=== PATIENT | female | born 1945 | race Caucasian/White ===

== ENCOUNTER 2019-07-16 06:00 | Outpatient (RCR) | payer MEDICARE, OTHER, SELFPAY | END 2019-08-15 23:59 | disposition home or self-care (01) | LOC: SPT 06:00 | PROVIDERS: Family Provider Family Medicine; PCP Family Medicine; Visit Provider Family Medicine | DX: M25.551 Pain in right hip (principal) ==

== ENCOUNTER 2019-07-22 11:56 | Outpatient (RCR) | payer MEDICARE, OTHER, SELFPAY | END 2019-08-15 23:59 | disposition home or self-care (01) | LOC: SR3 11:56 | PROVIDERS: Family Provider Family Medicine; PCP Family Medicine; Visit Provider Family Medicine | DX: M25.551 Pain in right hip (principal) | CPT/HCPCS: 97110; 97162 ==

== ENCOUNTER 2019-08-08 08:56 | Outpatient (CLI) | payer MEDICARE, OTHER, SELFPAY ==
--- NOTE | 2019-08-08 09:16 | CT_ITS ---
WS: [id number] CT CHEST, ABDOMEN, AND PELVIS TECHNIQUE: Contrast-enhanced CT of the chest, abdomen, and pelvis with coronal and sagittal reformatt ed images. CLINICAL INFORMATION: MALIGNANT NEOPLASM OF THE ENDOMETRIUM COMPARISON: None. DLP: [id number] scans at [facility] use at least one of these dose optimization techniques: automat ed exposure control; mA and/or kV adjustment per patient size (includes targeted exams where dose is matched to clinical indication); or iterative reconstruction. CT CHEST: Proximal main pulmonary arteries are normal. Normal caliber thoracic aorta. Normal thoracic aorta. Nu merous normal sized mediastinal and paratracheal lymph nodes. Prominent right hilar lymph node measur ing 11 mm. These are nonspecific but may be reactive. No axillary lymphadenopathy. Lungs are well aer ated. No acute pulmonary infiltrates. No suspicious pulmonary parenchymal opacities. CT ABDOMEN AND PELVIS: Liver is normal in appearance. Normal portal vein and splenic vein. Prominent gallstone measuring 1.9 CM. No gallbladder wall thickening. Normal gastroesophageal junction. Normal spleen. Adrenal glands are normal. Normal renal parenchymal enhancement. No hydronephrosis. Mild fatty atrophy of the pancre as. Aortic calcification. No periaortic lymphadenopathy. Sigmoid diverticulosis. No evidence of acute diverticulitis. No inguinal lymphadenopathy. No inguinal or pelvic sidewall lymphadenopathy. 1.5 cm low-attenuation lesion right upper outer right breast appears cystic. This could followed up w ith right diagnostic mammogram and ultrasound. CT/CT chest abd pel w con* IMPRESSION: 1. No evidence of metastatic disease in the chest abdomen or pelvis. 2. Prior postoperative changes hysterectomy. No pelvic sidewall lymphadenopath y. 3. A few prominent anterior mediastinal and paratracheal lymph nodes. 11 mm ri ght hilar lymph node. Findings are nonspecific but may be reactive. 4. No suspicious pulmonary parenchymal opacities. 5. Prominent 1.9 cm gallstone in the gallbladder. No gallbladder wall thickeni ng. 6. No abdominal or pelvic lymphadenopathy. 7. Diverticulosis. No evidence of acute diverticulitis 8. 1.5 cm low-attenuation lesion upper outer right breast with attenuation larry ues consistent with cyst. This can be followed up with right diagnostic mammogr aphy and ultrasound.
[2019-08-08 10:51] LABS: Blood Urea Nitrogen 21 mg/dL (8-23)
[2019-08-08] MEDS: iohexol 300 mg/mL 100 mL Btl IV (10:58)
[2019-08-08] MEDS: iohexol 300 mg/mL 50 mL Btl PO (11:21)
== END 2019-08-08 08:57 | disposition home or self-care (01) ==
PROVIDERS: Radiology Neuroradiology; Family Provider Family Medicine; PCP Family Medicine; Visit Provider Nurse Practitioner Family
DX: C54.1 Malignant neoplasm of endometrium (principal); E66.9 Obesity, unspecified; Z68.34 Body mass index [BMI] 34.0-34.9, adult; Z90.710 Acquired absence of both cervix and uterus; K80.80 Other cholelithiasis without obstruction; K57.30 Diverticulosis of large intestine without perforation or abscess without bleeding; N60.01 Solitary cyst of right breast
CPT/HCPCS: 71260; 74177; 82565; 84520; Q9967

== ENCOUNTER 2019-08-16 06:00 | Outpatient (RCR) | payer MEDICARE, OTHER, SELFPAY | END 2019-09-13 23:59 | disposition home or self-care (01) | LOC: SR3 06:00 | PROVIDERS: Family Provider Family Medicine; PCP Family Medicine; Visit Provider Family Medicine | DX: M25.551 Pain in right hip (principal) | CPT/HCPCS: 97110 ==

== ENCOUNTER 2019-08-21 14:27 | Outpatient (CLI) | payer MEDICARE, OTHER, SELFPAY ==
--- NOTE | 2019-08-21 15:00 | MM_ITS ---
WS: [id number] DIAGNOSTIC RIGHT DIGITAL MAMMOGRAM WITH CAD RIGHT breast ultrasound, limited HISTORY: CT showing 1.5 cm lesion on her upper outer right breast COMPARISON: 10/28/2018, 10/12/2017, 10/06/2016 and 09/23/2014. CT 08/08/2019. TECHNIQUE: RIGHT craniocaudad, mediolateral oblique, and mediolateral views are submitted. Spot compr ession RIGHT CC and MLO. Computer aided detection utilized. Breast composition: There are scattered areas of fibroglandular density. Ill-defined soft tissue mass is noted in the upper outer quadrant of the RIGHT breast anteriorly. This corresponds to the mass se en on the recent mammogram. Comparing prior mammograms this mass has been present on prior studies. M ass does appear slightly better seen today than on prior studies. Mass measures approximately 18 mm i n diameter. RIGHT breast ultrasound, limited. There is a dense cluster of fibroglandular/fibrocystic change in the RIGHT breast at 12:00. This fatemeh esponds in shape to the mammographic abnormality. Mammographically the lesion is lateral to the nippl e. May be difference in the way the breast is positioned. MM/[place] [id number] IMPRESSION: BI-RADS: 2-Benign FOLLOW UP: 1 Year Follow-up The breast mass seen on CT corresponds to an 18 mm patch of fibroglandular tiss ue which has been present since 2009 by mammography. If this is not palpable no additional further workup is necessary. If this changes or becomes palpable bi opsy should high be obtained. By ultrasound and mammography this is benign and stable in appearance.
--- NOTE | 2019-08-21 15:05 | US_ITS ---
WS: [id number] DIAGNOSTIC RIGHT DIGITAL MAMMOGRAM WITH CAD RIGHT breast ultrasound, limited HISTORY: CT showing 1.5 cm lesion on her upper outer right breast COMPARISON: 10/28/2018, 10/12/2017, 10/06/2016 and 09/23/2014. CT 08/08/2019. TECHNIQUE: RIGHT craniocaudad, mediolateral oblique, and mediolateral views are submitted. Spot compr ession RIGHT CC and MLO. Computer aided detection utilized. Breast composition: There are scattered areas of fibroglandular density. Ill-defined soft tissue mass is noted in the upper outer quadrant of the RIGHT breast anteriorly. This corresponds to the mass se en on the recent mammogram. Comparing prior mammograms this mass has been present on prior studies. M ass does appear slightly better seen today than on prior studies. Mass measures approximately 18 mm i n diameter. RIGHT breast ultrasound, limited. There is a dense cluster of fibroglandular/fibrocystic change in the RIGHT breast at 12:00. This fatemeh esponds in shape to the mammographic abnormality. Mammographically the lesion is lateral to the nippl e. May be difference in the way the breast is positioned. US/US breast RT limited* [id number] IMPRESSION: BI-RADS: 2-Benign FOLLOW UP: 1 Year Follow-up The breast mass seen on CT corresponds to an 18 mm patch of fibroglandular tiss ue which has been present since 2009 by mammography. If this is not palpable no additional further workup is necessary. If this changes or becomes palpable bi opsy should high be obtained. By ultrasound and mammography this is benign and stable in appearance.
== END 2019-08-21 14:28 | disposition home or self-care (01) ==
LOC: RADSHAW 14:32
PROVIDERS: Family Provider Family Medicine; PCP Family Medicine; Visit Provider Obstetrics & Gynecology
DX: N64.89 Other specified disorders of breast (principal)
CPT/HCPCS: 76642; 77065

== ENCOUNTER 2020-08-10 12:16 | Outpatient (CLI) | payer MEDICARE, SELFPAY ==
--- NOTE | 2020-08-10 12:25 | CT_ITS ---
WS: [id number] CT CHEST WITH INTRAVENOUS CONTRAST HISTORY: PULMONARY NODULE, HISTORY OF ENDOMETRIAL CANCER TECHNIQUE: Contiguous 5 mm axial imaging performed on the thorax. Coronal and sagittal reformats are submitted. All CT scans at [facility] use at least one of these dose optimization techniq ues: automated exposure control; mA and/or kV adjustment per patient size (includes targeted exams wh ere dose is matched to clinical indication); or iterative reconstruction. CONTRAST: Omnipaque 300; 95 mL IV. DLP: 1011.33 mGycm COMPARISON: 08/08/2019 Lungs and central airway: Mild nodular opacification within the lingula in a tree-in-bud distribution . No additional nodules are identified. Pleura: Normal. No pleural effusion. Heart and pericardium: Mildly enlarged cardiac chambers. Mediastinum and stuart: Indeterminate mediastinal and hilar lymph nodes. These lymph nodes have slightl y increased in size and number since 08/08/2019. The largest lymph node is again noted at the RIGHT hi lum measuring 12 mm. Vessels: Mild atherosclerosis aorta. Normal size pulmonary artery. Chest wall and lower neck: RIGHT breast nodule measures 13 mm, similar to the prior study. Upper abdomen: Cholelithiasis without acute cholecystitis. Gallbladder is incompletely visualized. At herosclerosis continues into the upper abdominal aorta. No abnormality. Osseous structures: Increase in thoracic kyphosis. CT/CT chest w con* [id number] IMPRESSION: 1. New mild tree-in-bud airspace disease is probably postinflammatory or infec tious at the lingula. 2. No pulmonary mass or nodule. 3. Very slight increase in size and number of the indeterminate mediastinal an d hilar lymph nodes. May be reactive. 4. Cholelithiasis. 5. Stable RIGHT breast nodule.
[2020-08-10 12:46] LABS: Blood Urea Nitrogen 10 mg/dL (8-23)
[2020-08-10] MEDS: iohexol 300 mg/mL 100 mL Btl IV (12:58)
== END 2020-08-10 12:17 | disposition home or self-care (01) ==
LOC: RADWPI 12:20
PROVIDERS: PCP Family Medicine; Visit Provider Nurse Practitioner Family
DX: Z85.42 Personal history of malignant neoplasm of other parts of uterus (principal); R91.1 Solitary pulmonary nodule; N63.10 Unspecified lump in the right breast, unspecified quadrant; K80.20 Calculus of gallbladder without cholecystitis without obstruction
CPT/HCPCS: 71260; 82565; 84520; Q9967

== ENCOUNTER 2020-10-15 11:18 | Outpatient (CLI) | payer MEDICARE, SELFPAY ==
--- NOTE | 2020-10-15 11:21 | MM_ITS ---
WS: [id number] BILATERAL DIGITAL SCREENING MAMMOGRAPHY WITH CAD CLINICAL INFORMATION: SCREENING HISTORY: Screening mammogram. No current complaints. COMPARISON: TECHNIQUE: Bilateral CC and MLO views. FINDINGS: Scattered fibroglandular densities bilaterally. Stable asymmetric breast tissue upper outer right gen ast anteriorly. No suspicious focal mass, asymmetry, calcifications, or architectural distortion. No evidence of malignancy. Lucent centered calcifications. MM/[place] [id number] IMPRESSION: BI-RADS: 2-Benign FOLLOW UP: 1 Year Follow-up Recommend return to annual screening mammography.
== END 2020-10-15 11:19 | disposition home or self-care (01) ==
LOC: RADSHAW 11:20
PROVIDERS: PCP Family Medicine; Visit Provider Family Medicine
DX: Z12.31 Encounter for screening mammogram for malignant neoplasm of breast (principal)
CPT/HCPCS: 77067

== ENCOUNTER 2021-12-01 15:09 | Outpatient (CLI) | payer MEDICARE, SELFPAY ==
--- NOTE | 2021-12-01 15:17 | MM_ITS ---
WS: [id number] BILATERAL 3D TOMOSYNTHESIS DIGITAL SCREENING MAMMOGRAPHY WITH CAD CLINICAL INFORMATION: SCREENING HISTORY: Screening mammogram. No current complaints. COMPARISON: October 15, 2020 TECHNIQUE: Bilateral CC and MLO views. FINDINGS: Scattered fibroglandular densities bilaterally. Stable asymmetric breast tissue upper outer RIGHT gen ast anteriorly unchanged. No suspicious focal mass, asymmetry, calcifications, or architectural disto rtion. No evidence of malignancy. MM/[place] [id number] IMPRESSION: BI-RADS: 2-Benign FOLLOW UP: 1 Year Follow-up Recommend return to annual screening mammography.
== END 2021-12-01 15:10 | disposition home or self-care (01) ==
LOC: RAD 15:13
PROVIDERS: PCP Family Medicine; Visit Provider Family Medicine
DX: Z12.31 Encounter for screening mammogram for malignant neoplasm of breast (principal)
CPT/HCPCS: 77063; 77067

== ENCOUNTER → 2022-10-04 12:46 | Outpatient (BNVA) | payer MEDICARE, SELFPAY | PROVIDERS: PCP Family Medicine; Visit Provider Family Medicine | DX: Z00.00 Encounter for general adult medical examination without abnormal findings (principal); I10 Essential (primary) hypertension; R73.9 Hyperglycemia, unspecified | CPT/HCPCS: 80053; 80061; 83036; 85025 ==

== ENCOUNTER 2022-10-12 14:02 | Outpatient (CLI) | payer MEDICARE, SELFPAY ==
--- NOTE | 2022-10-12 14:52 | XR_ITS ---
WS: [id number] Exam: XR hip BI 3-4V wo/[place] [id number] Date/Time of Exam: 10/12/2022 3:06 PM Reason For Exam: hip pain There is moderately advanced degenerative change of both hips. No fracture or dislocation seen. There is subcortical cyst formation in the bilateral femoral heads and the bilateral acetabulum. Normal bi lateral soft tissues. XR/XR hip BI 3-4V wo/w [place] [id number] IMPRESSION: 1. Moderately advanced osteoarthritis of both hips. The right side slightly wor se than the left. 2. No fracture or dislocation.
== END 2022-10-12 14:03 | disposition home or self-care (01) ==
PROVIDERS: PCP Family Medicine; Visit Provider Family Medicine
DX: R93.89 Abnormal findings on diagnostic imaging of other specified body structures (principal); R73.9 Hyperglycemia, unspecified; I10 Essential (primary) hypertension; M16.0 Bilateral primary osteoarthritis of hip
CPT/HCPCS: 73522; 84550; 85025; 86140; 86160; 86162; 86235; 86255; 86376; 86431

== ENCOUNTER 2022-11-08 16:21 | Outpatient (CLI) | payer MEDICARE, SELFPAY ==
--- NOTE | 2022-11-08 16:30 | CT_ITS ---
WS: [id number] CT chest wo con [id number] HISTORY: f/u on tree in bud disease 2 years ago. smoker, cough TECHNIQUE: Axial imaging performed through the thorax. Coronal and sagittal reformats are submitted. All CT scans at [facility] use at least one of these dose optimization techniques: automated exposure control; mA and/or kV adjustment per patient size (includes targeted exams where dose is mat ched to clinical indication); or iterative reconstruction. CONTRAST: None DLP: 482.34 mGy.cm COMPARISON: 08/10/2020 Lungs and central airway: Very mild tree-in-bud airspace disease in the lingula is unchanged since . 2 mm micronodule LEFT lung base is unchanged. No new or enlarging nodules or masses. No new airspace disease. Pleura: Normal. No pleural effusion. Heart and pericardium: Normal size heart with no pericardial effusion. Mediastinum and stuart: Small, subcentimeter mediastinal and hilar lymph nodes with no progression. Pranay e of these lymph nodes are calcified from granulomatous disease. Vessels: Mild atherosclerosis aorta. No aneurysm. Normal size pulmonary artery. Chest wall and lower neck: No soft tissue masses. Upper abdomen: Cholelithiasis. No evidence for acute cholecystitis by CT. 18 mm stone within the gall bladder. No adrenal mass. Visualized upper organs are otherwise negative. Osseous structures: Mild thoracic spondylosis. CT/CT chest wo con [id number] IMPRESSION: 1. No interval change in the minimal tree-in-bud airspace disease at the lingu la. Likely chronic at this time. There is been no progression. 2. No pneumonia. 3. Stable numerous small mediastinal and hilar lymph nodes. 4. Cholelithiasis without acute cholecystitis.
== END 2022-11-08 16:22 | disposition home or self-care (01) ==
LOC: RAD 16:26
PROVIDERS: PCP Family Medicine; Visit Provider Family Medicine
DX: R93.89 Abnormal findings on diagnostic imaging of other specified body structures (principal); K80.20 Calculus of gallbladder without cholecystitis without obstruction; R05.9 Cough, unspecified; F17.200 Nicotine dependence, unspecified, uncomplicated
CPT/HCPCS: 71250

== ENCOUNTER 2022-12-14 10:35 | Outpatient (CLI) | payer MEDICARE, SELFPAY ==
--- NOTE | 2022-12-14 10:41 | MM_ITS ---
WS: [id number] SCREENING DIGITAL BREAST TOMOSYNTHESIS MAMMOGRAM WITH CAD HISTORY: SCREENING COMPARISON: 12/01/2021, 10/15/2020, 10/28/2018 Bilateral CC and MLO with tomosynthesis and synthetic mammography submitted. Computer aided detection analyzed. Breast composition: There are scattered areas of fibroglandular density. Focal asymmetry measuring 8 mm in the central LEFT breast seen on the MLO projection. Suspect superimposed fibroglandular tissue. Otherwise the asymmetries are stable within each breast. MM/[place] [id number] IMPRESSION: BI-RADS: 2-Benign FOLLOW UP: Need Additional Imaging LEFT breast: Spot compression views (MLO). True ML. Ultrasound to follow if abn ormality persists.
== END 2022-12-14 10:36 | disposition home or self-care (01) ==
PROVIDERS: PCP Family Medicine; Visit Provider Family Medicine
DX: Z12.31 Encounter for screening mammogram for malignant neoplasm of breast (principal)
CPT/HCPCS: 77063; 77067

== ENCOUNTER 2023-01-08 11:37 | Outpatient (CLI) | payer MEDICARE, SELFPAY ==
--- NOTE | 2023-01-08 11:46 | MM_ITS ---
WS: [id number] ADDITIONAL VIEWS LEFT MAMMOGRAM with tomosynthesis. HISTORY: ABNORMAL MAMMO COMPARISON: 12/14/2022 and 12/01/2021 LEFT MAMMOGRAM: Spot compression views and true ML with tomosynthesis and sympathetic mammography. The asymmetry described on 12/14/2022 in the central LEFT breast is no longer present. Asymmetry has re solved with additional imaging. No ultrasound necessary. MM/[place] [id number] IMPRESSION: BI-RADS: 2-Benign FOLLOW UP: 1 Year Follow-up
== END 2023-01-08 11:38 | disposition home or self-care (01) ==
LOC: RAD 11:39
PROVIDERS: PCP Family Medicine; Visit Provider Family Medicine
DX: R92.8 Other abnormal and inconclusive findings on diagnostic imaging of breast (principal)
CPT/HCPCS: 77061; G0279

== ENCOUNTER → 2023-02-06 10:46 | Outpatient (BNVA) | payer MEDICARE, SELFPAY | PROVIDERS: PCP Family Medicine; Visit Provider Internal Medicine Rheumatology | DX: Z79.899 Other long term (current) drug therapy (principal); M19.90 Unspecified osteoarthritis, unspecified site; Z11.1 Encounter for screening for respiratory tuberculosis; Z11.59 Encounter for screening for other viral diseases; M17.0 Bilateral primary osteoarthritis of knee; M19.042 Primary osteoarthritis, left hand; M19.041 Primary osteoarthritis, right hand; R76.8 Other specified abnormal immunological findings in serum | CPT/HCPCS: 36415; 71046; 73130; 73562; 73630; 80076; 82310; 82565; 83735; 84100; 84132; 85025; 85651; 86140; 86200; 86480; 86704; 86803; 87340; 99204 ==

== ENCOUNTER → 2023-04-09 14:49 | Outpatient (BNVA) | payer MEDICARE, SELFPAY | PROVIDERS: PCP Family Medicine; Visit Provider Internal Medicine Rheumatology | DX: Z79.899 Other long term (current) drug therapy (principal); M19.90 Unspecified osteoarthritis, unspecified site; R76.8 Other specified abnormal immunological findings in serum | CPT/HCPCS: 99214 ==

== ENCOUNTER 2023-05-08 07:58 | Outpatient (CLI) | payer MEDICARE, SELFPAY ==
[2023-05-08 08:23] LABS: Basophils # 0.1 10^3/uL (0.0-0.1); Basophils % 1.3 %; Eosinophils # 0.2 10^3/uL (0.0-0.8); Eosinophils % 2.8 %; Hematocrit 45.1 % (36-47); Lymphocytes # 1.1 10^3/uL (0.8-4.8); Lymphocytes % 17.5 %; Mean Corpuscular HGB Conc 32.2 g/dL (30-55); Mean Corpuscular Hemoglobin 28.2 pg (27-33); Mean Corpuscular Volume 87.7 fl (85-98); Mean Platelet Volume 9.8 fL (7.4-10.4); Monocytes # 0.7 10^3/uL (0.2-0.9); Monocytes % 10.6 %; Neutrophils # 4.32 10^3/uL (1.8-7.7); Neutrophils % 67.5 %; Nucleated Red Blood Cells % 0 %; Platelet Count 267 10^3/cmm (157-399); Red Blood Count 5.14 10^6/uL (3.85-5.65); Red Cell Distribution Width 14.8 % (12.1-15.1)
[2023-05-08 08:54] LABS: Alanine Aminotransferase 12 U/L (0-33); Albumin Level 3.6 g/dL (3.5-5.2); Alkaline Phosphatase 100 U/L (35-105); Globulin 3.5 g/dL (1.3-4.6); Thyroid Stimulating Hormone 3.13 uIU/mL (0.27-4.20); Total Bilirubin 0.5 mg/dL (0.15-1.2); Total Protein 7.1 g/dL (6.6-8.7)
[2023-05-08 09:43] LABS: Free T4 Free Thyroxine 1.14 ng/dL (0.82-1.77)
[2023-05-08 10:02] LABS: Aspartate Amino Transferase 18 U/L (0-32)
== END 2023-05-08 07:59 | disposition home or self-care (01) ==
LOC: LAB 07:59
PROVIDERS: PCP Family Medicine; Visit Provider Internal Medicine Rheumatology
DX: M19.90 Unspecified osteoarthritis, unspecified site (principal); Z79.899 Other long term (current) drug therapy
CPT/HCPCS: 36415; 80076; 82565; 84439; 84443; 85025; 86140

== ENCOUNTER → 2023-07-02 13:56 | Outpatient (BNVA) | payer MEDICARE, SELFPAY | PROVIDERS: PCP Family Medicine; Visit Provider Internal Medicine Rheumatology | DX: Z79.899 Other long term (current) drug therapy (principal); M19.90 Unspecified osteoarthritis, unspecified site; R76.8 Other specified abnormal immunological findings in serum | CPT/HCPCS: 36415; 80076; 82565; 82657; 85025; 86140; 99214 ==

== ENCOUNTER 2023-08-02 08:16 | Outpatient (CLI) | payer MEDICARE, SELFPAY ==
[2023-08-02 08:36] LABS: Basophils # 0.1 10^3/uL (0.0-0.1); Basophils % 1.2 %; Eosinophils # 0.2 10^3/uL (0.0-0.8); Eosinophils % 2.9 %; Hematocrit 42.3 % (36-47); Lymphocytes # 1.1 10^3/uL (0.8-4.8); Lymphocytes % 16.5 %; Mean Corpuscular HGB Conc 31.4 g/dL (30-55); Mean Corpuscular Hemoglobin 29.1 pg (27-33); Mean Corpuscular Volume 92.6 fl (85-98); Mean Platelet Volume 9.7 fL (7.4-10.4); Monocytes # 0.6 10^3/uL (0.2-0.9); Monocytes % 8.3 %; Neutrophils # 4.84 10^3/uL (1.8-7.7); Neutrophils % 70.8 %; Nucleated Red Blood Cells % 0 %; Platelet Count 249 10^3/cmm (157-399); Red Blood Count 4.57 10^6/uL (3.85-5.65); Red Cell Distribution Width 14.7 % (12.1-15.1); White Blood Count 6.84 10^3/uL (3.29-11.43)
[2023-08-02 09:04] LABS: Alanine Aminotransferase 15 U/L (0-33); Albumin Level 3.7 g/dL (3.5-5.2); Alkaline Phosphatase 85 U/L (35-105); Aspartate Amino Transferase 21 U/L (0-32); Globulin 3.3 g/dL (1.3-4.6); Total Bilirubin 0.4 mg/dL (0.15-1.2)
== END 2023-08-02 08:17 | disposition home or self-care (01) ==
PROVIDERS: PCP Family Medicine; Visit Provider Internal Medicine Rheumatology
DX: Z79.899 Other long term (current) drug therapy (principal); M19.90 Unspecified osteoarthritis, unspecified site
CPT/HCPCS: 80076; 82565; 85025; 86140

== ENCOUNTER 2023-11-29 15:44 | Outpatient (CLI) | payer MEDICARE, SELFPAY ==
[2023-11-29 16:07] LABS: Basophils # 0.1 10^3/uL (0.0-0.1); Basophils % 0.6 %; Eosinophils # 0.1 10^3/uL (0.0-0.8); Eosinophils % 0.9 %; Hematocrit 40.6 % (36-47); Lymphocytes # 1.1 10^3/uL (0.8-4.8); Lymphocytes % 11.3 %; Mean Corpuscular HGB Conc 32.3 g/dL (30-55); Mean Corpuscular Hemoglobin 28.9 pg (27-33); Mean Corpuscular Volume 89.6 fl (85-98); Mean Platelet Volume 9.5 fL (7.4-10.4); Monocytes # 0.6 10^3/uL (0.2-0.9); Monocytes % 6.3 %; Neutrophils # 7.57 10^3/uL (1.8-7.7); Neutrophils % 80.6 %; Nucleated Red Blood Cells % 0 %; Platelet Count 258 10^3/cmm (157-399); Red Blood Count 4.53 10^6/uL (3.85-5.65); Red Cell Distribution Width 14.6 % (12.1-15.1); White Blood Count 9.39 10^3/uL (3.29-11.43)
[2023-11-29 16:12] LABS: Erythrocyte Sedimentation Rate 18 mm/hr (0-15)
[2023-11-29 17:18] LABS: Alanine Aminotransferase 13 U/L (0-33); Alkaline Phosphatase 77 U/L (35-105); Globulin 3.2 g/dL (1.3-4.6); Total Bilirubin 0.5 mg/dL (0.15-1.2); Total Protein 7.2 g/dL (6.6-8.7)
[2023-11-29 17:50] LABS: Aspartate Amino Transferase 27 U/L (0-32)
== END 2023-11-29 15:45 | disposition home or self-care (01) ==
PROVIDERS: PCP Family Medicine; Visit Provider Internal Medicine Rheumatology
DX: Z79.899 Other long term (current) drug therapy (principal); M19.90 Unspecified osteoarthritis, unspecified site
CPT/HCPCS: 80076; 82565; 85025; 85651; 86140

== ENCOUNTER → 2024-01-10 09:36 | Outpatient (BNVA) | payer MEDICARE, SELFPAY | PROVIDERS: PCP Family Medicine; Visit Provider Internal Medicine Rheumatology | DX: M19.90 Unspecified osteoarthritis, unspecified site (principal); R76.8 Other specified abnormal immunological findings in serum; Z79.899 Other long term (current) drug therapy; Z11.59 Encounter for screening for other viral diseases; Z11.1 Encounter for screening for respiratory tuberculosis | CPT/HCPCS: 99214 ==

== ENCOUNTER 2024-01-14 10:45 | Outpatient (CLI) | payer MEDICARE, SELFPAY ==
--- NOTE | 2024-01-14 10:55 | MM_ITS ---
WS: [id number] BILATERAL SCREENING DIGITAL TOMOSYNTHESIS MAMMOGRAM WITH CAD HISTORY: SCREENING COMPARISON: 01/08/2023, 10/28/2018 and 08/21/2019 Bilateral CC and MLO views with tomosynthesis and synthetic mammography submitted. Computer aided det ection analyzed. Breast composition: There are scattered areas of fibroglandular density. No suspicious masses, microc alcifications or architectural distortion. There are scattered asymmetries in each breast which have been present on prior studies with no adverse change. Benign calcifications. MM/[place] [id number] IMPRESSION: BI-RADS: 2-Benign FOLLOW UP: 1 Year Follow-up
== END 2024-01-14 10:46 | disposition home or self-care (01) ==
LOC: RAD 10:45
PROVIDERS: PCP Family Medicine; Visit Provider Family Medicine
DX: Z12.31 Encounter for screening mammogram for malignant neoplasm of breast (principal); R92.323 Mammographic fibroglandular density, bilateral breasts; N64.89 Other specified disorders of breast; R92.1 Mammographic calcification found on diagnostic imaging of breast
CPT/HCPCS: 77063; 77067

== ENCOUNTER → 2024-05-08 09:50 | Outpatient (BNVA) | payer MEDICARE, SELFPAY | PROVIDERS: PCP Family Medicine; Visit Provider Internal Medicine Rheumatology | DX: Z79.899 Other long term (current) drug therapy (principal); M19.90 Unspecified osteoarthritis, unspecified site; R76.8 Other specified abnormal immunological findings in serum | CPT/HCPCS: 36415; 80076; 82306; 82565; 83036; 84439; 84443; 85025; 85651; 86140; 99214 ==

== ENCOUNTER 2024-06-06 14:04 | Outpatient (CLI) | payer MEDICARE, SELFPAY ==
[2024-06-06 14:55] LABS: Basophils # 0.1 10^3/uL (0.0-0.1); Basophils % 0.8 %; Eosinophils # 0.1 10^3/uL (0.0-0.8); Eosinophils % 1.3 %; Lymphocytes # 1.3 10^3/uL (0.8-4.8); Mean Corpuscular HGB Conc 31.2 g/dL (30-55); Mean Corpuscular Hemoglobin 28.5 pg (27-33); Mean Corpuscular Volume 91.3 fl (85-98); Monocytes # 0.6 10^3/uL (0.2-0.9); Monocytes % 7.5 %; Neutrophils # 5.77 10^3/uL (1.8-7.7); Neutrophils % 73.1 %; Nucleated Red Blood Cells % 0 %; Platelet Count 256 10^3/cmm (157-399); Red Blood Count 4.71 10^6/uL (3.85-5.65); Red Cell Distribution Width 15.1 % (12.1-15.1); White Blood Count 7.88 10^3/uL (3.29-11.43)
[2024-06-06 15:00] LABS: Erythrocyte Sedimentation Rate 16 mm/hr (0-15)
[2024-06-06 15:39] LABS: Alanine Aminotransferase 15 U/L (0-33); Albumin Level 4.1 g/dL (3.5-5.2); Alkaline Phosphatase 72 U/L (35-105); Aspartate Amino Transferase 18 U/L (0-32); Globulin 2.9 g/dL (1.3-4.6); Total Bilirubin 0.4 mg/dL (0.15-1.2)
== END 2024-06-06 14:05 | disposition home or self-care (01) ==
PROVIDERS: PCP Family Medicine; Visit Provider Internal Medicine Rheumatology
DX: Z79.899 Other long term (current) drug therapy (principal); M19.90 Unspecified osteoarthritis, unspecified site
CPT/HCPCS: 36415; 80076; 82565; 85025; 85651; 86140

== ENCOUNTER 2024-06-13 12:34 | Outpatient (CLI) | payer MEDICARE, SELFPAY ==
--- NOTE | 2024-06-13 12:38 | XRR_ITS ---
PROCEDURE INFORMATION: Exam: XR Lumbosacral Spine Exam date and time: 06/13/2024 12:49 PM Age: 79 years old Clinical indication: Low back pain; Additional info: Bilateral paralumbar spine for months; On prednisone TECHNIQUE: Imaging protocol: Radiologic exam of the lumbosacral spine. Views: 2 or 3 views. COMPARISON: CR XR hip BI 3-4V wo/[place] [id number] 10/12/2022 3:08 PM FINDINGS: Bones/joints: Mild left scoliosis. Disc space narrowing and spurring at all levels. The pedicles are intact. . No acute fracture. Normal alignment. Soft tissues: Unremarkable. Vasculature: Aortic calcifications. XR/XR lumbar spine 2-3V* [id number] IMPRESSION: Multilevel degenerative disc disease.
== END 2024-06-13 12:35 | disposition home or self-care (01) ==
LOC: RAD 12:34
PROVIDERS: PCP Family Medicine; Visit Provider Family Medicine
DX: M51.370 Other intervertebral disc degeneration, lumbosacral region with discogenic back pain only (principal); I70.0 Atherosclerosis of aorta
CPT/HCPCS: 72100

== ENCOUNTER 2024-06-17 11:39 | Outpatient (RCR) | payer MEDICARE, SELFPAY | END 2024-07-15 23:59 | disposition home or self-care (01) | LOC: SPT 11:39 | PROVIDERS: PCP Family Medicine; Visit Provider Family Medicine | DX: M51.369 Other intervertebral disc degeneration, lumbar region without mention of lumbar back pain or lower extremity pain (principal); M47.816 Spondylosis without myelopathy or radiculopathy, lumbar region | CPT/HCPCS: 97110; 97161 ==

== ENCOUNTER 2024-06-26 09:32 | Outpatient (CLI) | payer MEDICARE, SELFPAY ==
--- NOTE | 2024-06-26 09:45 | USCV_ITS ---
Rachel Berry Age: 79 Gender: F : 1945 Exam Date: 06/26/2024 10:32 Ordering Phys: Amalia Nielson MD Technologist: Exam Location: [facility] [place] Indication: cold feet RIGHT LEFT Brachial 138.00 mmHg Brachial 139.00 mmHg Pressure (mmHg) Waveform Pressure (mmHg) Waveform 159.00 MARBLE SETTER 162.00 158.00 DPA 151.00 1.14 Ankle/Brachial Index 1.17 148.00 Pre-Exercise Toe Pressure 118.00 1.06 Pre-Exercise Toe/Brachial Index 0.85 FINDINGS Resting MIGUEL 1.14 on the right side and 1.17 on the left side Resting TBI of 1.06 on the right and 1.0.85 on the left CONCLUSIONS Normal resting ABIs and TBIs bilaterally No significant arterial obstruction, based on the above findings Dr Jens Ngo MD [facility] (Electronically Signed) Final Date: 26 June 2024 22:12 S
== END 2024-06-26 09:33 | disposition home or self-care (01) ==
LOC: RAD 09:32
PROVIDERS: PCP Family Medicine; Visit Provider Family Medicine
DX: Z13.6 Encounter for screening for cardiovascular disorders (principal); R09.89 Other specified symptoms and signs involving the circulatory and respiratory systems; R20.9 Unspecified disturbances of skin sensation
CPT/HCPCS: 93922

== ENCOUNTER 2024-07-16 06:00 | Outpatient (RCR) | payer MEDICARE, SELFPAY | END 2024-07-24 23:59 | disposition home or self-care (01) | LOC: SPT 06:00 | PROVIDERS: PCP Family Medicine; Visit Provider Family Medicine | DX: M51.369 Other intervertebral disc degeneration, lumbar region without mention of lumbar back pain or lower extremity pain (principal); M47.816 Spondylosis without myelopathy or radiculopathy, lumbar region | CPT/HCPCS: 97110 ==

== ENCOUNTER → 2024-09-18 11:46 | Outpatient (BNVA) | payer MEDICARE, SELFPAY | PROVIDERS: PCP Family Medicine; Visit Provider Internal Medicine Rheumatology | DX: M19.90 Unspecified osteoarthritis, unspecified site (principal); R76.8 Other specified abnormal immunological findings in serum; Z79.899 Other long term (current) drug therapy; M47.816 Spondylosis without myelopathy or radiculopathy, lumbar region; M06.00 Rheumatoid arthritis without rheumatoid factor, unspecified site | CPT/HCPCS: 36415; 80076; 82565; 85025; 85651; 86140; 99214 ==

== ENCOUNTER 2024-09-26 11:40 | Outpatient (CLI) | payer MEDICARE, SELFPAY ==
--- NOTE | 2024-09-26 11:45 | MR_ITS ---
WS: [id number] MRI LUMBAR SPINE NONCONTRAST HISTORY: chronic lower back pain; has completed xrays and PT COMPARISON: None available. TECHNIQUE: Sagittal and axial multisequence imaging is submitted. Cervical spondylosis. Disc osteophyte encroachment upon the ventral cervical cord at C4-5, C5-6 and C6-7. LEFT curvature scoliosis lumbar spine. Disc spaces are desiccated and narrowed throughout the lumbar spine. Chronic reactive endplate changes at L1 and L2. No acute fractures identified. Mild retrolisthesis of L1. Conus terminates normally at L1-2 disc level. T12-L1: Marked LEFT facet joint arthropathy and mild LEFT foraminal stenosis. L1-L2: Marked annular disc bulging, osteophytic ridging and facet and ligamentum flavum hypertrophy. Much greater facet arthropathy on the RIGHT. There is severe encroachment upon the RIGHT lateral thecal sac and subarticular recess. Compression and deformity of the traversing RIGHT L2 nerve root. Moderate central with bilateral subarticular recess and severe foraminal stenosis. L2-L3: Diffuse annular disc bulging with osteophytic ridging. Severe ligamentum flavum and facet arthritis. Small bilateral foraminal disc protrusions. Severe central, bilateral subarticular recess and moderate foraminal stenosis. L3-L4: Marked annular disc bulging with osteophytic ridging, ligamentum flavum and facet arthritis. Severe central, bilateral subarticular recess and moderate to severe foraminal stenosis. L4-L5: Diffuse annular disc bulging with severe ligamentum flavum and facet arthritis. Trefoil appearance of the thecal sac. Moderate to severe central, bilateral subarticular recess and mild foraminal stenosis. L5-S1: Diffuse annular disc bulging with focal central disc protrusion. Disc protrusion contacts the S1 nerve roots, LEFT greater than RIGHT. Additional broad-based disc bulging to the LEFT causing moderate LEFT foraminal stenosis. There is contact on the LEFT exiting L5 nerve root. No RIGHT foraminal stenosis. Paravertebral soft tissues are normal. MR/MR lumbar spine wo con* [id number] IMPRESSION: 1. Advanced degenerative rotary scoliosis and facet arthropathy throughout the lumbar spine. 2. Multi disc levels of stenosis due to combination of disc bulging, disc prot rusions, facet and ligamentum flavum hypertrophy and osteophytosis. 3. L3-4: Severe central, bilateral subarticular recess and moderate to severe foraminal stenosis. Severe facet arthritis. 4. L4-5: Moderate to severe central, bilateral subarticular recess and mild fo raminal stenosis. 5. L5-S1: Central disc protrusion with asymmetric left-sided disc bulging. Michael ateral subarticular recess encroachment with disc contacting the S1 nerve roots , LEFT greater than RIGHT. Moderate LEFT foraminal stenosis. 6. L2-3: Severe central, bilateral subarticular recess and moderate foraminal stenosis. Contact on the exiting and traversing nerve roots. 7. L1-2: Severe narrowing of the RIGHT subarticular recess predominately due t o facet arthropathy. Moderate central with bilateral subarticular recess and se gila foraminal stenosis.
== END 2024-09-26 11:41 | disposition home or self-care (01) ==
PROVIDERS: PCP Family Medicine; Visit Provider Family Medicine
DX: M47.816 Spondylosis without myelopathy or radiculopathy, lumbar region (principal); G89.29 Other chronic pain; M41.86 Other forms of scoliosis, lumbar region; M47.896 Other spondylosis, lumbar region; M48.061 Spinal stenosis, lumbar region without neurogenic claudication; M51.369 Other intervertebral disc degeneration, lumbar region without mention of lumbar back pain or lower extremity pain; M51.26 Other intervertebral disc displacement, lumbar region; R93.7 Abnormal findings on diagnostic imaging of other parts of musculoskeletal system; M51.27 Other intervertebral disc displacement, lumbosacral region; M51.379 Other intervertebral disc degeneration, lumbosacral region without mention of lumbar back pain or lower extremity pain; M48.07 Spinal stenosis, lumbosacral region; M25.78 Osteophyte, vertebrae; M43.16 Spondylolisthesis, lumbar region; M47.894 Other spondylosis, thoracic region; M48.04 Spinal stenosis, thoracic region; M24.28 Disorder of ligament, vertebrae
CPT/HCPCS: 72148

== ENCOUNTER → 2024-10-07 14:53 | Outpatient (BNVA) | payer MEDICARE, SELFPAY | PROVIDERS: PCP Family Medicine; Visit Provider Nurse Practitioner Family | DX: M54.50 Low back pain, unspecified (principal); G89.29 Other chronic pain | CPT/HCPCS: 99214 ==

== ENCOUNTER → 2024-10-14 14:18 | Outpatient (BNVA) | payer MEDICARE, SELFPAY | PROVIDERS: PCP Family Medicine; Visit Provider Orthopaedic Surgery | DX: M47.816 Spondylosis without myelopathy or radiculopathy, lumbar region (principal) | CPT/HCPCS: 72110; 99204 ==

== ENCOUNTER → 2024-10-16 14:10 | Outpatient (BNVA) | payer MEDICARE, SELFPAY | PROVIDERS: PCP Family Medicine; Visit Provider Nurse Practitioner Family | DX: M79.18 Myalgia, other site (principal); M48.062 Spinal stenosis, lumbar region with neurogenic claudication; M54.50 Low back pain, unspecified; G89.29 Other chronic pain; Z87.891 Personal history of nicotine dependence | CPT/HCPCS: 20553; 99214; J1010; J3490 ==

== ENCOUNTER → 2024-10-30 10:12 | Outpatient (BNVA) | payer MEDICARE, SELFPAY | PROVIDERS: PCP Family Medicine; Visit Provider Nurse Practitioner Family | DX: M48.062 Spinal stenosis, lumbar region with neurogenic claudication (principal); M54.50 Low back pain, unspecified; G89.29 Other chronic pain | CPT/HCPCS: 99213 ==

== ENCOUNTER → 2024-11-11 13:16 | Outpatient (BNVA) | payer MEDICARE, SELFPAY | PROVIDERS: PCP Family Medicine; Visit Provider Anesthesiology Pain Medicine | DX: M47.816 Spondylosis without myelopathy or radiculopathy, lumbar region (principal); M48.062 Spinal stenosis, lumbar region with neurogenic claudication | CPT/HCPCS: 64493; 64494; 64495; J3490; J9999 ==

== ENCOUNTER → 2024-11-25 13:13 | Outpatient (BNVA) | payer MEDICARE, SELFPAY | PROVIDERS: PCP Family Medicine; Visit Provider Nurse Practitioner Family | DX: M48.062 Spinal stenosis, lumbar region with neurogenic claudication (principal); M54.50 Low back pain, unspecified; G89.29 Other chronic pain | CPT/HCPCS: 99214 ==

== ENCOUNTER → 2024-12-17 10:52 | Outpatient (BNVA) | payer MEDICARE, SELFPAY | PROVIDERS: PCP Family Medicine; Visit Provider Anesthesiology Pain Medicine | DX: M47.816 Spondylosis without myelopathy or radiculopathy, lumbar region (principal); M48.062 Spinal stenosis, lumbar region with neurogenic claudication; M54.50 Low back pain, unspecified; G89.29 Other chronic pain | CPT/HCPCS: 64493; 64494; 64495; J3490; J9999 ==

== ENCOUNTER → 2024-12-23 11:23 | Outpatient (BNVA) | payer MEDICARE, SELFPAY | PROVIDERS: PCP Family Medicine; Visit Provider Family Medicine | DX: M47.816 Spondylosis without myelopathy or radiculopathy, lumbar region (principal); M06.00 Rheumatoid arthritis without rheumatoid factor, unspecified site | CPT/HCPCS: 80076; 82565; 85025; 85651; 86140 ==

== ENCOUNTER 2024-12-31 10:57 | Outpatient (CLI) | payer MEDICARE, SELFPAY ==
[2024-12-31 12:01] LABS: Basophils # 0.1 10^3/uL (0.0-0.1); Basophils % 1.1 %; Eosinophils # 0.2 10^3/uL (0.0-0.8); Eosinophils % 1.8 %; Hematocrit 39.6 % (36-47); Lymphocytes # 1.4 10^3/uL (0.8-4.8); Lymphocytes % 12.9 %; Mean Corpuscular HGB Conc 32.1 g/dL (30-55); Mean Corpuscular Hemoglobin 27.7 pg (27-33); Mean Corpuscular Volume 86.3 fl (85-98); Mean Platelet Volume 9.6 fL (7.4-10.4); Monocytes # 0.8 10^3/uL (0.2-0.9); Monocytes % 7.4 %; Neutrophils # 8.19 10^3/uL (1.8-7.7); Neutrophils % 76.2 %; Nucleated Red Blood Cells % 0 %; Platelet Count 259 10^3/cmm (157-399); Red Blood Count 4.59 10^6/uL (3.85-5.65); Red Cell Distribution Width 15.3 % (12.1-15.1); White Blood Count 10.75 10^3/uL (3.29-11.43)
[2024-12-31 12:06] LABS: Erythrocyte Sedimentation Rate 28 mm/hr (0-15)
[2024-12-31 12:22] LABS: Alanine Aminotransferase 18 U/L (0-33); Albumin Level 3.9 g/dL (3.5-5.2); Alkaline Phosphatase 99 U/L (35-105); Aspartate Amino Transferase 22 U/L (0-32); Bilirubin Direct 0.28 mg/dL (0.00-0.30); Globulin 3.4 g/dL (1.3-4.6); Total Bilirubin 0.6 mg/dL (0.15-1.2); Total Protein 7.3 g/dL (6.6-8.7)
== END 2024-12-31 10:58 | disposition home or self-care (01) ==
LOC: LAB 10:59
PROVIDERS: PCP Family Medicine; Visit Provider Internal Medicine Rheumatology
DX: M47.816 Spondylosis without myelopathy or radiculopathy, lumbar region (principal); M06.00 Rheumatoid arthritis without rheumatoid factor, unspecified site; M48.062 Spinal stenosis, lumbar region with neurogenic claudication
CPT/HCPCS: 36415; 80076; 82565; 85025; 85651; 86140; 99214

== ENCOUNTER → 2025-01-14 14:25 | Outpatient (BNVA) | payer MEDICARE, SELFPAY | PROVIDERS: PCP Family Medicine; Visit Provider Anesthesiology Pain Medicine | DX: M47.816 Spondylosis without myelopathy or radiculopathy, lumbar region (principal); M48.062 Spinal stenosis, lumbar region with neurogenic claudication; M54.9 Dorsalgia, unspecified | CPT/HCPCS: 64635; 64636; J1100; J9999 ==

== ENCOUNTER → 2025-01-22 11:07 | Outpatient (BNVA) | payer MEDICARE, SELFPAY | PROVIDERS: PCP Family Medicine; Visit Provider Internal Medicine Rheumatology | DX: M19.90 Unspecified osteoarthritis, unspecified site (principal); R76.8 Other specified abnormal immunological findings in serum; M06.00 Rheumatoid arthritis without rheumatoid factor, unspecified site; Z79.899 Other long term (current) drug therapy | CPT/HCPCS: 99214 ==

== ENCOUNTER → 2025-01-28 13:20 | Outpatient (BNVA) | payer MEDICARE, SELFPAY | PROVIDERS: PCP Family Medicine; Visit Provider Anesthesiology Pain Medicine | DX: M47.816 Spondylosis without myelopathy or radiculopathy, lumbar region (principal); M48.062 Spinal stenosis, lumbar region with neurogenic claudication; M54.9 Dorsalgia, unspecified | CPT/HCPCS: 64635; 64636; J1100; J9999 ==

== ENCOUNTER → 2025-02-11 09:06 | Outpatient (BNVA) | payer MEDICARE, SELFPAY | PROVIDERS: PCP Family Medicine; Visit Provider Nurse Practitioner Family | DX: M48.062 Spinal stenosis, lumbar region with neurogenic claudication (principal); M54.50 Low back pain, unspecified; G89.29 Other chronic pain | CPT/HCPCS: 99214 ==

== ENCOUNTER 2025-03-11 08:19 | Outpatient (CLI) | payer MEDICARE, SELFPAY ==
--- NOTE | 2025-03-11 08:25 | CTR_ITS ---
PROCEDURE INFORMATION: Exam: CT Lumbar Spine Without Contrast Exam date and time: 03/11/2025 8:54 AM Age: 79 years old Clinical indication: Low back pain; Prior surgery; Surgery date: 6+ months; Surgery type: Ablation of nerves in back; Additional info: Other intervertebral disc degeneration, lumbar region TECHNIQUE: Imaging protocol: Computed tomography of the lumbar spine without contrast. Radiation optimization: All CT scans at this facility use at least one of these dose optimization techniques: automated exposure control; mA and/or kV adjustment per patient size (includes targeted exams where dose is matched to clinical indication); or iterative reconstruction. COMPARISON: MR lumbar spine wo con* [id number] 09/26/2024 11:51 AM RADIATION DOSE METRICS: Total DLP (mGy-cm): 1131.4 FINDINGS: Bones/joints: Levoscoliosis. Partial sacralization of the left portion of L5 with unilateral left-sided articulation which can be a source of chronic low back pain. Moderate to severe multilevel spine degenerative changes including degenerative disc disease, spondylosis and facet degenerative changes. L1-L2: Moderate to severe degenerative disc disease and spondylosis. Right lateral recess stenosis. Right foraminal stenosis. L2-L3: Severe degenerative disc disease and spondylosis. Moderate to severe central spinal stenosis with right lateral recess stenosis. Severe bilateral facet hypertrophy and degenerative change. L3-L4: Moderate degenerative disc disease and spondylosis. Severe bilateral facet hypertrophy and degenerative change. Moderate to severe central spinal stenosis with right lateral recess stenosis. [id number] left foraminal stenosis. L4-L5: Mild to moderate degenerative disc disease and spondylosis. Severe bilateral facet hypertrophy and degenerative change. L5-S1: Moderate degenerative disc disease and spondylosis. Moderate bilateral facet hypertrophy with left facet degenerative change. Posterior disc bulge. Left lateral recess stenosis. Borderline to mild left foraminal stenosis. Vasculature: Calcification of the abdominal aorta and/or iliac arteries consistent with atherosclerotic vessel disease. Soft tissues: Unremarkable. Other findings: . CT/CT lumbar spine wo con* [id number] IMPRESSION: 1. Levoscoliosis. 2. Partial sacralization of the left portion of L5 with unilateral left-sided articulation which can be a source of chronic low back pain. 3. Multilevel degenerative changes as discussed above.
--- NOTE | 2025-03-11 08:25 | CTR_ITS ---
PROCEDURE INFORMATION: Exam: CT Thoracic Spine Without Contrast Exam date and time: 03/11/2025 8:48 AM Age: 79 years old Clinical indication: Pain in thoracic spine; Without myelpathy or radiculopathy; Additional info: Spondylosis w/o myelopathy or radiculopathy, lumbar region TECHNIQUE: Imaging protocol: Computed tomography of the thoracic spine without contrast. Radiation optimization: All CT scans at this facility use at least one of these dose optimization techniques: automated exposure control; mA and/or kV adjustment per patient size (includes targeted exams where dose is matched to clinical indication); or iterative reconstruction. COMPARISON: MR lumbar spine wo con* [id number] 09/26/2024 11:51 AM RADIATION DOSE METRICS: Total DLP (mGy-cm): 836.46 FINDINGS: Bones/joints: Idiopathic S-shaped scoliosis. 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 Prominent anterior osteophytes at T1-T2. Moderate thoracic spondylosis. Mild idiopathic S-shaped scoliosis. Soft tissues: Unremarkable. Vasculature: Calcification of the thoracic aorta and/or great vessels consistent with atherosclerotic vessel disease. Lymph nodes: Calcified right hilar nodes and/or mediastinal nodes and/or lung granulomas consistent with old granulomatous disease. Pleural spaces: Bilateral apical pleural and/or parenchymal scarring. Coronary arteries: Moderate calcified coronary artery disease. CT/CT thoracic spin wo con* [id number] IMPRESSION: 1. 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 2. Prominent anterior osteophytes at T1-T2. 3. Moderate thoracic spondylosis. 4. Mild idiopathic S-shaped scoliosis.
== END 2025-03-11 08:20 | disposition home or self-care (01) ==
LOC: RAD 08:20
PROVIDERS: PCP Family Medicine; Visit Provider Neurological Surgery
DX: M47.816 Spondylosis without myelopathy or radiculopathy, lumbar region (principal); M81.0 Age-related osteoporosis without current pathological fracture
CPT/HCPCS: 72128; 72131

== ENCOUNTER 2025-03-13 14:09 | Outpatient (CLI) | payer MEDICARE, SELFPAY ==
--- NOTE | 2025-03-13 14:13 | XR_ITS ---
WS: [email or web address] DEXA (DUAL ENERGY X-RAY ABSORPTIOMETRY) Bone mineral density was performed using a [employer] machine. HISTORY: AGE RELATED OSTEOPOROSIS COMPARISON: 06/13/2016 Lumbar spine BMD (L1-L4): 1.810 g/cm2 T score: 5.2 Z score: 5.9 Total hip BMD: Left: 1.162 g/cm2. T score: 1.2 Z score: 2.3 Right: 1.222 g/cm2. T score: 1.7 Z score: 2.8 10 year probability of a major osteoporotic fracture is 13.6%. Compared to the prior study from 06/13/2016. Lumbar spine bone mineral density has decreased by 4.4%. Bilateral hips bone mineral density has decreased by 4.9%. XR/XR DEXA axial skeleton* [id number] IMPRESSION: NORMAL BONE MINERAL DENSITY based upon the WHO classification for females. Significant decrease in bone mineral density since the prior study within the l umbar spine and hips.
== END 2025-03-13 14:10 | disposition home or self-care (01) ==
LOC: RAD 14:10
PROVIDERS: PCP Family Medicine; Visit Provider Neurological Surgery
DX: M81.0 Age-related osteoporosis without current pathological fracture (principal)
CPT/HCPCS: 77080

== ENCOUNTER 2025-03-23 13:35 | Outpatient (CLI) | payer MEDICARE, SELFPAY ==
--- NOTE | 2025-03-23 13:41 | MR_ITS ---
WS: [id number] MRI THORACIC SPINE noncontrast HISTORY: DEGENERATIVE DISK DISEASE COMPARISON: Thoracic spine CT 03/11/2025 TECHNIQUE: Multiplanar sequences are performed in sagittal and axial planes. Partial cervical disc fusion C5-6 and C6-7. C5-6 posterior disc osteophyte contacts the ventral cord. Mild increase in thoracic kyphosis. Disc spaces are narrowed and desiccated with a few small Schmorl's nodes. No acute fractures. Normal signal within the cord. T1-2: Mild foraminal stenosis. T2-3: Facet joint arthropathy, LEFT greater than RIGHT and mild foraminal stenosis. T3-4: Moderate bilateral facet arthritis and mild foraminal stenosis. T4-5: Moderate bilateral facet joint arthritis. T5-6: Moderate bilateral facet arthritis. T6-7: Moderate bilateral facet arthritis with a tiny central disc protrusion. T7-8: Moderate bilateral facet arthritis. T8-9: Moderate bilateral facet joint arthropathy. Tiny central disc protrusion. T9-10: Moderate to severe facet arthritis. Mild foraminal stenosis. T10-11: Moderate bilateral facet arthritis. T11-12: Moderate bilateral facet joint arthritis. Paravertebral soft tissues are normal. No adrenal mass. LEFT renal cyst, 1.4 cm. MR/MR thoracic spin wo con* [id number] IMPRESSION: 1. Mild increase in thoracic kyphosis. 2. No acute compression fractures. 3. Degenerative disc disease. 4. Facet joint arthropathy throughout the thoracic spine. No high-grade centra l stenosis.
== END 2025-03-23 13:36 | disposition home or self-care (01) ==
LOC: RAD 13:35
PROVIDERS: PCP Family Medicine; Visit Provider Neurological Surgery
DX: M47.816 Spondylosis without myelopathy or radiculopathy, lumbar region (principal); M40.294 Other kyphosis, thoracic region; M51.34 Other intervertebral disc degeneration, thoracic region; M47.894 Other spondylosis, thoracic region; M43.22 Fusion of spine, cervical region; M25.78 Osteophyte, vertebrae; M51.44 Schmorl's nodes, thoracic region; M48.04 Spinal stenosis, thoracic region; N28.1 Cyst of kidney, acquired
CPT/HCPCS: 72146

== ENCOUNTER 2025-03-24 07:44 | Emergency (ER) | payer MEDICARE, SELFPAY ==
[2025-03-24 07:50] VITALS: BP 154/79; PULSE 70; RESP 18; TEMP 36.5; O2SAT 91
--- NOTE | 2025-03-24 07:52 | W.ED.FALL ---
HPI - Fall General: Chief Complaint: Back Pain/Injury Stated Complaint: fall, back pain Time Seen by Provider: 03/24/25 07:52 History of Present Illness: 79-year-old female presents emergency room after a fall at home she is complaining of severe low back pain which is exacerbated she has chronic back pain as well. She also has left hip and elbow pain. She stumbled while stepping into the house up a step. She fell on her left side, left hip and left elbow pain did not strike her head did not lose consciousness. Recently she has been worked up for chronic back pain she is had thoracic and lumbar MRIs as well as CTs within the last 6 months all were reviewed on the chart showed various degrees of arthritic changes and some foraminal stenosis but no severe impingement was noted. She was able to stand and was ambulatory after the fall. She has superficial abrasion on the left elbow no active bleeding no laceration. Associated symptoms-after fall: Denies abdominal pain, chest pain or neck pain Related Data Home Medications ?Medication ?Instructions ?Recorded ?Confirmed multivitamin 1 tab PO DAILY 02/06/23 02/11/25 acetaminophen 500 mg capsule 1,000 mg PO BID osteoarthritis 07/02/23 02/11/25 turmeric PO 05/08/24 02/11/25 Previous Rx's ?Medication ?Instructions ?Recorded cholecalciferol (vitamin D3) 50 50 mcg PO DAILY #90 caps 06/13/24 mcg (2,000 unit) capsule diazepam 10 mg tablet 10 mg PO ONCE prior to MRI #1 tab 09/11/24 carvedilol 25 mg tablet 25 mg PO BID #180 tabs 12/23/24 citalopram 20 mg tablet (Celexa) 20 mg PO DAILY #90 tabs 12/23/24 hydrochlorothiazide 25 mg tablet See Rx Instructions .Route 12/23/24 .COMPLEX #90 tabs omeprazole 20 mg capsule,delayed See Rx Instructions .Route 12/23/24 release .COMPLEX #90 caps sulfasalazine 500 mg tablet See Rx Instructions PO .COMPLEX 01/22/25 #90 tabs baclofen 5 mg tablet 5 mg PO BID PRN muscle spasm #60 02/11/25 tabs diclofenac sodium 75 mg 75 mg PO Q12H PRN pain #20 tabs 03/24/25 tablet,delayed release Allergies Allergy/AdvReac Type Severity Reaction Status Date / Time leflunomide AdvReac Intermediate heart Verified 02/11/25 09:09 palpitations Review of Systems Const: Denies: fever(s) or chills Card: Denies: chest pain Resp: Denies: dyspnea GI: Denies: abdominal pain : Denies: dysuria, urinary frequency or urinary urgency Musc: Reports: back pain; Denies: neck pain Skin/Breast: Denies: rash PFSH ED PFSH: Medical History Lumbar spondylosis DJD (degenerative joint disease), lumbar Lumbar degenerative disc disease On prednisone therapy per rheum Chronic GERD without esophagitis Varicose veins of bilateral lower extremities with pain Postmenopausal Chronic lower back pain Vitamin D deficiency Prediabetes Hx of cancer of endometrium hyst and internal radiation therapy High risk medication use Anxiety and depression Small airways disease Pt states was told 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 Inflammatory arthritis Hypertension Surgical History Ankle fracture, left surgery History of hysterectomy with bilateral oophorectomy and tubes removed; endometrial cancer Family History Mother Breast cancer Sister Breast cancer Father Colon cancer Other Cancer Hypertension Lung disease Denies family history of Rheumatoid arthritis Diabetes Lupus CAD (coronary artery disease) Chronic kidney disease (CKD) Family history of premature coronary artery disease Stroke Social History Smoking and tobacco/nicotine status: former use of tobacco/nicotine Quit status (tobacco/nicotine): has quit using Year quit tobacco: 1999 Alcohol intake: never Substance/Drug Use: never Household members: none Marital status: / Number of children: 3 Highest education level completed: Bachelor's Degree Current occupational status: retired 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 Physical Exam Const: GENERAL APPEARANCE: cooperative ORIENTATION/CONSCIOUSNESS: Yes awake, Yes oriented to person, Yes oriented to place and Yes oriented to time HENMT: COMMON NORMALS: normocephalic, atraumatic and hearing grossly normal bilaterally HEAD & SCALP: normocephalic and atraumatic Resp: COMMON NORMALS: normal respiratory effort, No retractions, No use of accessory muscles and clear to auscultation bilaterally AUSCULTATION: clear to auscultation bilaterally Cardio: COMMON NORMALS: regular rate, regular rhythm and No murmurs present (Cardio) RATE: regular rate RHYTHM: regular rhythm GI: COMMON NORMALS: Soft to palpation and No hepatosplenomegaly present AUSCULTATION: Yes normoactive bowel sounds PALPATION: Yes Soft to palpation, No Tenderness to palpation present (GI), No Guarding due to palpation present (GI) and Yes No hepatosplenomegaly present Extremity: COMMON NORMALS: normal to inspection, capillary refill normal, no clubbing, cyanosis or edema, no calf tenderness and no pedal edema OTHER: Full range of motion of the left elbow with a superficial abrasion over the proximal ulnar ridge. Patient is able to flex extend internally and externally rotate at the hip with mild discomfort Neuro: SENSORIUM/ORIENTATION: Yes oriented to person, Yes oriented to place and Yes oriented to time OTHER: Lower extremities neurovascularly intact no paresthesias. Skin: COMMON NORMALS: no rashes or lesions noted GENERAL SKIN EXAM: no rashes or lesions noted Course Vital Signs: Vital signs: Vital Signs Temperature 97.7 F 03/24/25 07:50 Pulse Rate 70 03/24/25 07:50 Respiratory Rate 18 03/24/25 08:50 Blood Pressure 154/79 03/24/25 07:50 Pulse Oximetry 95 03/24/25 08:50 Oxygen Delivery Me thod Room Air 03/24/25 07:50 MDM - Fall Medical Decision Making Patient had previous bone density that showed decrease in bone density compared to previous but overall still did not have osteoporosis. CT does not show any acute fractures. Will discharge patient home continue baclofen added diclofenac. Keep appointment with neurosurgery as scheduled. Medical Records I reviewed the patient's medical records. Lab Data I reviewed the patient's lab results. Radiology Impressions Elbow X-Ray 03/24/25 08:01 Impression: 1. Negative for fracture or dislocation. 2. Small calcification adjacent to the medial humeral condyle from old trauma. 3. Small olecranon spur with overlying soft tissue swelling. Hip/Pelvis X-Ray 03/24/25 08:01 Impression: 1. Negative for left hip fracture. 2. Moderate osteoarthritis of the left hip. Lumbar Spine CT 03/24/25 08:03 IMPRESSION: 1. Lumbar scoliosis. No acute compression. Advanced multilevel degenerative disc disease. 2. Moderate central canal stenosis L1-2, severe L2-3 and L3-4, moderate to severe L4-5. Recommend spine surgery consultation and follow-up lumbar spine MRI for better detail. 3. LEFT paracentral protrusion L5-S1 impinges the LEFT S1 nerve root in the subarticular recess. 4. Moderate to advanced osteoarthropathy throughout the lumbar spine. All radiology interpretation(s) finalized by discharge Discharge Plan Discharge Patient Disposition: Home Clinical Impression: Fall (on) (from) other stairs and steps, initial encounter Chronic lower back pain Qualifiers: Back pain laterality: bilateral Sciatica presence: without sciatica Qualified Code(s): M54.50 - Low back pain, unspecified Condition: Stable Prescriptions: New diclofenac sodium 75 mg tablet,delayed release (DR/EC) 75 mg PO Q12H PRN (Reason: pain) Qty: 20 0RF No Action acetaminophen 500 mg capsule 1,000 mg PO BID cholecalciferol (vitamin D3) 50 mcg (2,000 unit) capsule 50 mcg PO DAILY Qty: 90 0RF diazepam 10 mg tablet 10 mg PO ONCE Qty: 1 0RF carvedilol 25 mg tablet 25 mg PO BID Qty: 180 1RF Rx Instructions: must administer with a meal/food citalopram [Celexa] 20 mg tablet 20 mg PO DAILY Qty: 90 3RF hydrochlorothiazide 25 mg tablet See Rx Instructions .ROUTE .COMPLEX Qty: 90 3RF Dose Instruction: TAKE 1 TABLET BY MOUTH EVERY DAY Rx Instructions: TAKE 1 TABLET BY MOUTH EVERY DAY omeprazole 20 mg capsule,delayed release(DR/EC) See Rx Instructions .ROUTE .COMPLEX Qty: 90 3RF Dose Instruction: TAKE 1 CAPSULE BY MOUTH EVERY DAY Rx Instructions: TAKE 1 CAPSULE BY MOUTH EVERY DAY multivitamin Tablet 1 tab PO DAILY turmeric PO sulfasalazine 500 mg tablet See Rx Instructions PO .COMPLEX Qty: 90 5RF Rx Instructions: take 2 tabs in am and 1 tab in evening orally; baclofen 5 mg tablet 5 mg PO BID PRN (Reason: muscle spasm) Qty: 60 0RF Discharge Orders: Discharge ED (Routine); Ordered 03/24/25 Ordered By: Mayco Haro Referrals: Amalia Nielson MD [Primary Care Provider, Family Practice] Discharge Diet: Usual diet Discharge Activity: Increase activity as tolerated Patient Instructions: Back Pain (ED), Opioid Safety, Pain Management, Patient Portal & Meseret Instructions Activity Restrictions/Additional Instructions: [facility]. It is very important that you follow up as instructed or that you return to the Emergency Department should you have concerns or if your condition changes or worsens in any way. Emergency department visits are focused on emergent conditions, in some cases you may require further evaluation on an outpatient basis. You were seen after a fall. You had pre-existing chronic pain per your history. CT did not show any acute fracture shows chronic changes that were seen previously on the MRI. Given diclofenac to use in addition to the baclofen for your back. Keep your follow-up with neurosurgery as scheduled. (Please note that included in your discharge packet is information concerning opioid safety and pain management. This information is given to all patients were discharged from the ER regardless of their discharge diagnosis or the medicines they usually take or are prescribed.) Print Language: Slovak Coding Level of Care Code ED Sales Marketing Director for Tomás Eastman
--- NOTE | 2025-03-24 08:01 | XR_ITS ---
WS: [id number] Left hip, AP and frog-leg views, 03/24/2025 Clinical Data: trauma Comparison: Bilateral hips, 10/12/2022 Findings: No fractures or dislocations are seen. Left hip shows narrowing and irregularity of the left femoral head. The adjoining pubic ramus is normal. The soft tissues are not remarkable. The adjacent pelvis is normal. XR/XR hip LT 2-3V wo/w pel* [id number] Impression: 1. Negative for left hip fracture. 2. Moderate osteoarthritis of the left hip.
--- NOTE | 2025-03-24 08:01 | XR_ITS ---
WS: [id number] Left elbow, 3 views, 03/24/2025 Clinical Data: trauma Comparison: None. Findings: No fractures or dislocations are seen. The radial head is normal. There is a small calcification adjacent to the medial humeral condyle which is probably from repetitive trauma rather than acute trauma. There is a small olecranon spur with soft tissue swelling overlying the spur.. XR/XR elbow LT min 3V* [id number] Impression: 1. Negative for fracture or dislocation. 2. Small calcification adjacent to the medial humeral condyle from old trauma. 3. Small olecranon spur with overlying soft tissue swelling.
--- NOTE | 2025-03-24 08:03 | CT_ITS ---
WS: [id number] CT LUMBAR SPINE TECHNIQUE: Noncontrast CT of the lumbar spine with coronal and sagittal reformatted images. CLINICAL INFORMATION: trauma COMPARISON: MRI 09/26/[address] 03/11/2025 DLP: 962.[address] scans at [facility] use at least one of these dose optimization techniques: automated exposure control; mA and/or kV adjustment per patient size (includes targeted exams where dose is matched to clinical indication); or iterative reconstruction. FINDINGS: Lumbar scoliosis. Advanced multilevel degenerative disc disease with endplate degenerative changes. No acute appearing compression fractures. Multilevel central canal stenosis. Adrenal glands are normal. Aortic calcification. Moderate degenerative arthritis sacroiliac joints. Alignment appears stable compared to the prior examinations. Grade 1 anterolisthesis L4 on L5. Narrowing of the LEFT T12-L1 subarticular recess and proximal foramen with moderate facet arthropathy. L1-L2: Disc desiccation. Moderate central canal stenosis. Impingement on the RIGHT subarticular recess. Mild RIGHT foraminal narrowing. L2-L3: Disc osteophyte complex with severe central canal stenosis. Advanced facet arthropathy. L3-L4: Slight anterolisthesis. Mild disc bulging. Severe central canal stenosis. Foramen are patent. L4-L5: Disc osteophyte complex with moderate to severe central canal stenosis. Advanced facet arthropathy. Foramen are patent. L5-S1: LEFT paracentral protrusion impinges the LEFT S1 nerve root in the subarticular recess. Moderate LEFT foraminal narrowing. Advanced facet arthropathy. L5 is partially sacralized on the LEFT. CT/CT lumbar spine wo con* [id number] IMPRESSION: 1. Lumbar scoliosis. No acute compression. Advanced multilevel degenerative di sc disease. 2. Moderate central canal stenosis L1-2, severe L2-3 and L3-4, moderate to sev ere L4-5. Recommend spine surgery consultation and follow-up lumbar spine MRI f or better detail. 3. LEFT paracentral protrusion L5-S1 impinges the LEFT S1 nerve root in the way barticular recess. 4. Moderate to advanced osteoarthropathy throughout the lumbar spine.
--- OUTSIDE RECORDS SUMMARY | 2025-03-24 08:04 | XMS_ITS | Clinical Summary ---
Author Organization [employer] [facility] Address [address] 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
--- OUTSIDE RECORDS SUMMARY | 2025-03-24 08:04 | XMS_ITS | Encounter Summary ---
Author Organization [facility] Address [address] [place] [address] Care Team Providers Care Well Head Pumper Name Role Phone Unavailable Primary Care Provider Unavailabl e Encounter Details Date Type Department Care Team (Latest Contact Info) Description 01/23/2005 Outpatient Historical [facility] Dermatology- [facility] [place] [address] [place] [address] Mark Anthony Joe MD NO ADDRESS ON FILE SEBORRHEIC KERATOSIS NOS (Primary Dx); UNCERTAIN BEHAV NEOPL SKIN Social History Tobacco Use Types Packs/Day Years Used Date Smoking Tobacco: Never Assessed Comments Unknown Sex and Gender Information Value Date Recorded Sex Assigned at Not on file 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
--- OUTSIDE RECORDS SUMMARY | 2025-03-24 08:04 | XMS_ITS | Encounter Summary ---
Author Organization [employer] [facility] Address [address] [place] [address] Care Team Providers Care Apartment Property Manager Name Role Phone Unavailable Primary Care Provider Unavailabl e Encounter Details Date Type Department Care Team (Latest Contact Info) Description 01/23/2005 Outpatient Historical [facility] [address] [place] [id number] Mark Anthony Joe MD NO ADDRESS ON FILE SEBORRHEIC KERATOSIS INFLAMED (Primary Dx) Social History Tobacco Use Types Packs/Day Years Used Date Smoking Tobacco: Never Assessed Comments Unknown Sex and Gender Information Value Date Recorded Sex Assigned at Not on file 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
[2025-03-24 08:50] VITALS: RESP 18; O2SAT 95
[2025-03-24] MEDS: morphine 4 mg/mL SDV 1 mL 2 MG IVP (08:50)
[2025-03-24 09:44] VITALS: BP 153/85; PULSE 66; O2SAT 98
== END 2025-03-24 09:45 | disposition home or self-care (01) ==
PROVIDERS: Emergency Provider Family Medicine; PCP Family Medicine
DX: M54.50 Low back pain, unspecified (principal); Z87.891 Personal history of nicotine dependence; I10 Essential (primary) hypertension; Z85.89 Personal history of malignant neoplasm of other organs and systems
CPT/HCPCS: 72131; 73080; 73502; 96374; 96375; 99285; J1885; J2270

== ENCOUNTER → 2025-05-20 14:24 | Outpatient (BNVA) | payer MEDICARE, SELFPAY | PROVIDERS: PCP Family Medicine; Visit Provider Internal Medicine Cardiovascular Disease | DX: R94.31 Abnormal electrocardiogram [ECG] [EKG] (principal); I25.2 Old myocardial infarction | CPT/HCPCS: 93005 ==

== ENCOUNTER 2025-06-01 09:35 | Outpatient (CLI) | payer MEDICARE, SELFPAY ==
--- NOTE | 2025-06-01 | ECG_ITS ---
[employer] Test Date: 2025-06-01 Pat Name: Rachel Berry Department: Room: Gender: Female Reference Investigator: : 1945 Requested By: Alma Delia Carrillo Order Number: [id number] Chucho MD: Aron Villalobos M.D. Interpretive Statements Procedure: A total of 0.4 mg of Lexiscan was infused over 20 seconds. The stress phase was continued for a total of 5 minutes. Sestamibi was injected 20 seconds after the Lexiscan infusion. Findings:The patient's baseline blood pressure was 147/77 mmHg with a heart rate of 63 bpm. After Lexiscan injection the patient's blood pressure decreased to a minimum of 123/60 millimeters of mercury. After Lexiscan infusion the heart rate increased to a maximum of 78 bpm. At the end of recovery the patient's blood pressure was 118/65 with a heart rate of 69 bpm. The baseline EKG showed normal sinus rhythm with a heart rate of 63 bpm with possible old anteroseptal myocardial infarction. No ST or T wave changes or arrhythmias during the stress test or in recovery. Conclusion: 1. Normal EKG response to Lexiscan infusion 2. No Lexiscan induced chest pain or cardiac arrhythmia. 3. Normal blood pressure and heart rate response. 4. Nuclear myocardial perfusion scan pending; see separate report. Electronically Signed On 06-02-2025 11:52:13 TURNER SPLITTER MACHINE OPERATOR by Aron Villalobos M.D. [email or web address]
[2025-06-01 09:54] VITALS: BMI 32.7
--- NOTE | 2025-06-01 09:56 | NMCV_ITS ---
NM knen perf SPECT r/s* [id number] Rachel Berry Age: 80 Gender: F : 1945 Exam Date: 06/01/2025 10:41 Ordering Phys: Alma Delia Carrillo MD ([email or web address]) Technologist: JUAN Barnes Exam Location: [facility] Indications: cp STRESS TEST Please [facility] IMAGE PROTOCOL Rest/Stress 1 Lexiscan Day Radiopharmaceutical Dose (mCi) Administration Site Administered by Rest: Tc-99m 10.7 IV JUAN Barnes Sestamibi Stress:Tc-99m 32.4 IV Kyra Fontenot, OLIVE PICKER Sestamibi Rest: 01-Jun-2025 60 Discovery 630 Stress: 01-Jun-2025 30 Discovery 630 0.4mg Lexiscan. Supine position only as patient was unable to lay prone. SPECT RESULTS Technical Quality: Good Raw Data Analysis: Normal Image Corrections: No attenuation or motion correction applied Summed Stress Score: 3 Summed Rest Score: 3 Summed Difference Score: 0 PERFUSION FINDINGS There is a small fixed defect in the apical inferior wall segment. No reversibility. FUNCTIONAL RESULTS (calculated via Gated SPECT) Stress Image LV EF (%): 73 Stress EDV (mL):94 TID: 1.1 Stress ESV (mL):25 FUNCTIONAL FINDINGS: There is normal left ventricular systolic function. IMPRESSIONS 1. There is a small fixed defect in the apical inferior wall segment consistent with infarct versus artifact. There is no ischemia. 2. There is normal left ventricular systolic function, EF 73%. Aron Villalobos MD, FACC (Electronically Signed) Final Date: 01 June 2025 21:16 S
[2025-06-01] MEDS: ondansetron 2 mg/ML SDV 2 mL 4 MG IVP (11:18)
[2025-06-01 11:26] VITALS: BP 118/65; PULSE 70
== END 2025-06-01 09:36 | disposition home or self-care (01) ==
LOC: CDL 09:37
PROVIDERS: PCP Family Medicine; Visit Provider Internal Medicine Cardiovascular Disease
DX: R07.9 Chest pain, unspecified (principal); R06.02 Shortness of breath; R94.39 Abnormal result of other cardiovascular function study
CPT/HCPCS: 78452; 93017; A9500; J2405; J2785

== ENCOUNTER 2025-06-18 13:54 | Outpatient (CLI) | payer MEDICARE, SELFPAY ==
--- NOTE | 2025-06-18 14:03 | MM_ITS ---
WS: [id number] VIEWS: MLO and CC views both breasts. 3D digital tomosynthesis is also included in this exam. Comparison made with prior exam of 05/07/2006, 05/14/2007, 06/02/2008, 06/04/2009, 06/13/2010, 06/26/2011, 07/26/2012, 09/19/2013, 09/23/2014, 09/28/2015, 10/06/2016, 10/12/2017, 10/28/2018, 08/21/2019, 10/15/2020, 12/01/2021, 12/14/2022, 01/14/2024.. Findings: There are scattered areas of fibroglandular density. No sign of suspicious mass, tumor calcification or architectural distortion. Stable appearing scattered parenchymal densities noted bilaterally. MM/MM scr BI tomosynthesis [id number] Impression: BI-RADS: 2 - Benign FOLLOW-UP: 1 Year Follow-up This mammogram was also analyzed by the Computer Aided Detection System R2 Imag e Can Operator.
[2025-06-18 14:39] LABS: Hematocrit 42.2 % (36-47); Hemoglobin 13.30 g/dL (11.27-16.99); Mean Corpuscular HGB Conc 31.5 g/dL (30-55); Mean Corpuscular Hemoglobin 28.1 pg (27-33); Mean Corpuscular Volume 89.2 fl (85-98); Nucleated Red Blood Cells % 0 %; Platelet Count 272 10^3/cmm (157-399); Red Blood Count 4.73 10^6/uL (3.85-5.65); White Blood Count 9.58 10^3/uL (3.29-11.43)
[2025-06-18 16:10] LABS: Alanine Aminotransferase 20 U/L (0-33); Albumin Level 4.1 g/dL (3.5-5.2); Alkaline Phosphatase 86 U/L (35-105); Aspartate Amino Transferase 26 U/L (0-32); Globulin 3.5 g/dL (1.3-4.6); Total Protein 7.6 g/dL (6.6-8.7)
== END 2025-06-18 13:55 | disposition home or self-care (01) ==
LOC: RAD 13:55
PROVIDERS: Internal Medicine Rheumatology; PCP Family Medicine; Visit Provider Family Medicine
DX: R76.89 Other specified abnormal immunological findings in serum (principal); Z79.899 Other long term (current) drug therapy; M06.041 Rheumatoid arthritis without rheumatoid factor, right hand; M06.042 Rheumatoid arthritis without rheumatoid factor, left hand; Z85.42 Personal history of malignant neoplasm of other parts of uterus
CPT/HCPCS: 36415; 77063; 77067; 80076; 82565; 85025; 85651; 86140; 99214